=== PATIENT | male | born 1975 | race Two or more races ===

== ENCOUNTER 2023-06-04 08:25 | Emergency (ER) | payer SELFPAY ==
[~2023-06-04] VITALS: Ht 172.7 cm; Wt 115.0 kg
[2023-06-04 09:04] VITALS: BP 135/82; PULSE 89; RESP 16; TEMP 97.1; O2SAT 93
[2023-06-04] MEDS ORDERED: CIPR0.3S67 OP (09:18)
== END 2023-06-04 09:39 | disposition home or self-care (01) ==
LOC: ER 08:25
DX: H10.9 Unspecified conjunctivitis (principal)